=== PATIENT | female | born 1960 | race Caucasian/White ===

== ENCOUNTER 2017-01-02 12:19 | Emergency (ER) | payer OTHER ==
[~2017-01-02] VITALS: Ht 168.9 cm; Wt 91.0 kg
[~2017-01-02 12:19] MED LIST: ANTI-INFLAMATORY; HIGH BLOOD PRESSURE; TYLE3 PO
[2017-01-02 12:22] VITALS: BP 134/81; PULSE 83; RESP 17; TEMP 97.8; O2SAT 99
[2017-01-02] MEDS ORDERED: POTA-163 PO (15:22)
[2017-01-02] MEDS ORDERED: FURO20TA PO (15:22)
--- NOTE | 2017-01-02 15:25 | PD ---
HPI Chief Complaint: Edema Time Seen by Provider: 15:25 Travel History International Travel<30 days: No Contact w/Intl Traveler<30days: No Traveled to known affect area: No History of Present Illness HPI 56-year-old female with history of hypertension, fatty liver, remote alcohol dependency, presents to emergency department for evaluation of bilateral lower extremity edema. Patient states it has been first noticed approximately a month ago but worsening significantly over the last week. She denies chest pain or tightness. No shortness of breath. No fever or chills. She is concerned that the lower extremity edema has increased to her lower abdomen per her report. She reports her lower abdomen being "filled with fluid as well. Patient was sent to the emergency department by Dr. Ledezma. Report was called and given to our nursing staff by Sada with request to admit this patient. [facility] Past Medical History Medical History: Denies Significant Hx Cardiovascular Problems: Yes Hypertension: Yes Menopausal: Yes : 0 Social History Alcohol Use: No (used to drink) Tobacco Use: No Substance Use: No Allergies-Medications (Allergen,Severity, Reaction): Coded Allergies: Sulfa (Sulfonamide Antibiotics) (Unverified Allergy, Severe, HIVES, ) Reported Meds & Prescriptions Reported Meds & Active Scripts Active Lasix (Furosemide) 40 Mg Tab 40 Mg PO DAILY Reported Furosemide 20 Mg Tab 20 Mg PO DAILY Potassium Chloride ER (Potassium Chloride) 20 Meq Tab 20 Meq PO TID Review of Systems Except as stated in HPI: all other systems reviewed are Neg Physical Exam Narrative GENERAL: Well-nourished female patient, in no acute distress SKIN: Focused skin assessment warm/dry. HEAD: Atraumatic. Normocephalic. EYES: Pupils equal and round. No injection or drainage. ENT: No nasal bleeding or discharge. Mucous membranes pink and moist. NECK: Trachea midline. No JVD. CARDIOVASCULAR: Regular rate and rhythm. No murmur appreciated. RESPIRATORY: No accessory muscle use. Clear to auscultation. Breath sounds equal bilaterally. GASTROINTESTINAL: Abdomen soft, non-tender, nondistended. Hepatic and splenic margins not palpable. MUSCULOSKELETAL: No obvious deformities. No clubbing. No cyanosis. 2+ bilateral lower extremity edema extending to the knees. Distal pulses are palpable. Cap refill within normal limits. NEUROLOGICAL: Awake and alert. No obvious cranial nerve deficits. Motor grossly within normal limits. Normal speech. PSYCHIATRIC: Appropriate mood and affect; insight and judgment normal. Data Data Last Documented VS Vital Signs Date Time Temp Pulse Resp B/P Pulse Ox O2 Delivery O2 Flow Rate FiO2 01/02/17 18:50 68 18 150/84 96 Room Air 01/02/17 12:22 97.8 Orders Electrocardiogram (01/02/17 ) Complete Blood Count With Diff (01/02/17 15:17) Comprehensive Metabolic Panel (01/02/17 15:17) B-Type Natriuretic Peptide (01/02/17 15:17) Act Partial Throm Time (Ptt) (01/02/17 15:17) Prothrombin Time / Inr (Pt) (01/02/17 15:17) Magnesium (Mg) (01/02/17 15:17) Urinalysis - C+S If Indicated (01/02/17 15:17) Iv Access Insert/Monitor (01/02/17 15:17) Ecg Monitoring (01/02/17 15:17) Oximetry (01/02/17 15:17) Oxygen Administration (01/02/17 15:17) Chest, Single Ap (01/02/17 15:17) Sodium Chloride 0.9% Flush (Ns Flush) (01/02/17 15:30) Labs Laboratory Tests Test 01/02/17 01/02/17 01/02/17 15:26 16:38 17:09 White Blood Count 6.2 TH/MM3 Red Blood Count 3.67 MIL/MM3 Hemoglobin 13.5 GM/DL Hematocrit 39.8 % Mean Corpuscular Volume 108.4 FL Mean Corpuscular Hemoglobin 36.9 PG Mean Corpuscular Hemoglobin 34.0 % Concent Red Cell Distribution Width 15.4 % Platelet Count 167 TH/MM3 Mean Platelet Volume 9.8 FL Neutrophils (%) (Auto) 52.2 % Lymphocytes (%) (Auto) 27.8 % Monocytes (%) (Auto) 11.9 % Eosinophils (%) (Auto) 6.7 % Basophils (%) (Auto) 1.4 % Neutrophils # (Auto) 3.3 TH/MM3 Lymphocytes # (Auto) 1.7 TH/MM3 Monocytes # (Auto) 0.7 TH/MM3 Eosinophils # (Auto) 0.4 TH/MM3 Basophils # (Auto) 0.1 TH/MM3 CBC Comment DIFF FINAL Differential Comment Sodium Level 139 MEQ/L Potassium Level 4.2 MEQ/L Chloride Level 106 MEQ/L Carbon Dioxide Level 24.5 MEQ/L Anion Gap 9 MEQ/L Blood Urea Nitrogen 9 MG/DL Creatinine 0.60 MG/DL Estimat Glomerular Filtration 103 ML/MIN Rate Random Glucose 90 MG/DL Calcium Level 8.5 MG/DL Magnesium Level 1.8 MG/DL Total Bilirubin 3.0 MG/DL Aspartate Amino Transf 72 U/L (AST/SGOT) Alanine Aminotransferase 32 U/L (ALT/SGPT) Alkaline Phosphatase 133 U/L B-Type Natriuretic Peptide 143 PG/ML Total Protein 7.0 GM/DL Albumin 2.5 GM/DL Urine Color YELLOW Urine Turbidity CLEAR Urine pH 6.0 Urine Specific [place] 1.013 Urine Protein NEG mg/dL Urine Glucose (UA) NEG mg/dL Urine Ketones NEG mg/dL Urine Occult Blood NEG Urine Nitrite NEG Urine Bilirubin NEG Urine Urobilinogen 2.0 MG/DL Urine Leukocyte Esterase NEG Urine RBC 2 /hpf Urine WBC 1 /hpf Urine Squamous Epithelial 1 /hpf Cells Urine Bacteria RARE /hpf Microscopic Urinalysis Comment CULT NOT INDICATED Prothrombin Time 13.4 SEC Prothromb Time International 1.2 RATIO Ratio Activated Partial 30.1 SEC Thromboplast Time MDM Medical Decision Making Medical Screen Exam Complete: Yes Emergency Medical Condition: Yes Medical Record Reviewed: Yes Differential Diagnosis Dependent edema versus CHF versus lymphedema versus hypoalbuminemia Narrative Course 56-year-old female presents to emergency department for evaluation bilateral lower extremity edema. Since here by her primary care provider Dr. Ledezma. Apparently patient had a BNP of 237 and new onset CHF was diagnosed. Patient has no chest pain or tightness. No difficulty breathing. [address] Ledezma. 1730 I have attempted to contact Dr. Ledezma 1800 another attempt has been made to contact Dr. Ledezma 1854 minute attending physician [facility]. After review of the labs and patient feeling overall well except for her lower extremity edema, we feel she is stable for discharge for outpatient echocardiogram. Her lasix will be doubled. She is informed to follow-up with Dr. Ledezma and to return immediately with any acute worsening symptoms. Diagnosis Primary Impression: Bilateral lower extremity edema Referrals: [employer] Primary Care Physician Patient Instructions: General Instructions, Leg Edema (ED) Additional Instructions: Follow-up with Dr. Ledezma Elevate lower extremities Increase furosemide to 40 mg by mouth daily. A new prescription is provided, but do not take this prescription as well as her old prescription. Outpatient echocardiogram is recommended Return immediately with any acute worsening of symptoms Med/Other Pt SpecificInfo: Existing Med Changed Scripts Furosemide (Lasix)40 Mg Tab40 Mg PO DAILY #14 TAB Ref 0 Prov:Amanda Chun 01/02/17 Disposition: 01 DISCHARGE HOME Condition: Stable Amanda Chun Jan 02, 2017 15:25
[2017-01-02] MEDS ORDERED: SODIUM CHLORIDE 0.9% FLUSH 10 ML FLUSH IVF PRN (15:30)
--- NOTE | 2017-01-02 15:42 | RADRPT ---
EXAM DATE/TIME: 01/02/2017 15:33 [facility] COMPARISON: No previous studies available for comparison. INDICATIONS : Shortness of breath. Bilateral feet swelling x 2 weeks. MEDICAL HISTORY : None. SURGICAL HISTORY : None. ENCOUNTER: Initial ACUITY: 2 weeks PAIN SCORE: 0/10 LOCATION: chest FINDINGS: A single view of the chest demonstrates the lungs to be symmetrically aerated without evidence of mas s, infiltrate or effusion. The cardiomediastinal contours are unremarkable. Osseous structures are intact. CONCLUSION: No acute disease. Robin Ibanez MD on January 02, 2017 at 15:40 Board Certified Radiologist. This report was verified electronically.
[2017-01-02 17:00] LABS: AUTOMATED NEUTROPHIL # 3.3 TH/MM3 (1.8-7.7); BASOPHIL # 0.1 TH/MM3 (0-0.2); BASOPHIL % 1.4 % (0.0-2.0); EOSINOPHIL # 0.4 TH/MM3 (0-0.4); EOSINOPHIL % 6.7 % (0.0-4.0); HEMATOCRIT 39.8 % (35.0-46.0); HEMO FLAGS DIFF FINAL; LYMPH % 27.8 % (9.0-44.0); LYMPHOCYTE # 1.7 TH/MM3 (1.0-4.8); MEAN CELL VOLUME 108.4 FL (80.0-100.0); MEAN CORPUSCULAR HEMOGLOBIN 36.9 PG (27.0-34.0); MONO % 11.9 % (0.0-8.0); NEUT % 52.2 % (16.0-70.0); PLATELET COUNT 167 TH/MM3 (150-450); RED BLOOD COUNT 3.67 MIL/MM3 (4.00-5.30); RED CELL DISTRIBUTION WIDTH 15.4 % (11.6-17.2); WHITE BLOOD COUNT 6.2 TH/MM3 (4.0-11.0)
[2017-01-02 17:10] LABS: BACTERIA, URINE RARE /hpf; BLOOD, URINE NEG (NEG); GLUCOSE,URINE NEG (NEG); KETONE, URINE NEG (NEG); NITRITE,URINE NEG (NEG); SQUAMOUS EPITHELIAL CELL URINE 1 /hpf (0-5); URINE COLOR YELLOW (YELLW/STRAW)
[2017-01-02 17:16] LABS: COMMENT (UR) CULT NOT INDICATED; CULTURE IF INDICATED CULT NOT INDICATED
[2017-01-02 17:25] LABS: ANION GAP 9 MEQ/L (5-15); AST (GOT) 72 U/L (15-37); BICARBONATE 24.5 MEQ/L (21.0-32.0); BLOOD UREA NITROGEN 9 MG/DL (7-18); CHLORIDE 106 MEQ/L (98-107); GLOMERULAR FILTRATION RATE 103 ML/MIN (>89); MAGNESIUM 1.8 MG/DL (1.5-2.5); POTASSIUM 4.2 MEQ/L (3.5-5.1); SODIUM (NA) 139 MEQ/L (136-145)
[2017-01-02 17:26] LABS: ALKALINE PHOSPHATASE 133 U/L (45-117); ALT (GPT) 32 U/L (10-53)
[2017-01-02 17:49] LABS: APTT (PATIENT) 30.1 SEC (24.3-30.1); INTERNATIONAL NORMALIZED RATIO 1.2 RATIO; PROTHROMBIN TIME - PATIENT 13.4 SEC (9.8-11.6)
[2017-01-02 18:50] VITALS: BP 150/84; PULSE 68; RESP 18; O2SAT 96
[2017-01-02] MEDS ORDERED: FURO1TAB60 PO (18:57)
--- NOTE | 2017-01-03 16:05 | EKG ---
Date Performed: 01/02/2017 Time Performed: 13:19:23 PTAGE: 56 years EKG: Sinus rhythm WITHIN NORMAL LIMITS BORDERLINE ECG NO PREVIOUS TRACING DOCTOR: Joseph Galindo Interpretating Date/Time 01/03/2017 16:04:39
== END 2017-01-02 22:00 | disposition home or self-care (01) ==
LOC: NEPE 12:19
DX: R60.0 Localized edema (principal); I10 Essential (primary) hypertension
CPT/HCPCS: 71010; 80053; 81001; 83735; 83880; 85025; 85610; 85730; 93005; 99285